=== PATIENT | female | born 2000 ===

== ENCOUNTER 2021-08-10 15:59 | Inpatient (IN) | payer OTHER ==
[2021-08-10] VITALS (24 sets, daily range): BP systolic 88–137; BP diastolic 49–73
[~2021-08-10] VITALS: Ht 157.5 cm; Wt 89.6 kg
[2021-08-10] MEDS ORDERED: OXYTOCIN DRIP 30 UNITS in IV 1 EA IV PRN (16:25)
[2021-08-10] MEDS ORDERED: LIDOCAINE 1% MDV 20ML VIAL INFIL PRN (16:25)
[2021-08-10] MEDS ORDERED: METHYLERGONOVINE MALEATE 0.2 MG/ML VIAL (J2210) IM PRN (16:25)
[2021-08-10] MEDS ORDERED: CARBOPROST TROMETHAMINE 250 MCG/ML AMP IM PRN (16:25)
[2021-08-10] MEDS ORDERED: miSOPROStol 50MCG 1/2 TABLET PO ONE ×2 (16:25→22:45)
[2021-08-10] MEDS ORDERED: TRANEXAMIC ACID INJection 1,000 MG in NS 100 ML IV PRN (16:25)
[2021-08-10] MEDS ORDERED: OXYTOCIN DRIP 30 UNITS in IV 1 EA IV SCH (16:25)
[2021-08-10] MEDS ORDERED: BUSP10TA PO (16:43)
[2021-08-10] MEDS ORDERED: ESCI5SOL3 PO (16:43)
[2021-08-10] MEDS ORDERED: FLINCHW2 PO (16:43)
[2021-08-10] MEDS ORDERED: TUMS500C PO (16:43)
[2021-08-10] MEDS: LR 1,000 ML IV SCH (18:34)
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
[2021-08-10] MEDS ORDERED: HOME MED LIST COMPLETE! XX SCH (18:40)
[2021-08-10 19:01] LABS: HEMOGLOBIN 12.9 g/dl (12.0-15.5); MEAN CORPUSCULAR HEMOGLOBIN 29.9 pg (27.0-33.0); MEAN CORPUSCULAR HGB CONC 32.3 g/dl (32.0-36.5); MEAN CORPUSCULAR VOLUME 92.8 fl (80.0-96.0); PLATELET COUNT, AUTOMATED 280 10^3/uL (150-450); RED BLOOD COUNT 4.31 10^6/uL (4.00-5.40); WHITE BLOOD COUNT 12.8 10^3/uL (4.0-10.0)
[2021-08-10] MEDS ORDERED: ONDANSETRON 4MG/2ML VIAL IV PRN ×2 (19:15→20:30)
[2021-08-10] MEDS ORDERED: FENTANYL 2MCG/ML ROPIVACAINE 0.2% IN 0.9% NACL 100ML IVBAG As Ordered ONE (19:53)
[2021-08-10] MEDS ORDERED: ONDANSETRON 4MG/2ML VIAL IV ONE (20:20)
[2021-08-10] MEDS ORDERED: EPIDURAL/PCA KEYS XX PRN (20:30)
[2021-08-10] MEDS ORDERED: NALOXONE INJ 0.4MG/1ML VIAL (J2310 PER 1MG) IV PRN (20:30)
[2021-08-10] MEDS ORDERED: diphenhydrAMINE 50MG/ML VIAL (J1200) IV PRN (20:30)
[2021-08-10] MEDS ORDERED: EPIDURAL COMMENT XX SCH (20:30)
[2021-08-10] MEDS ORDERED: LACTATED RINGER'S 1000 ML IV PRN (20:30)
[2021-08-10] MEDS ORDERED: REFRIGERATOR IV KEYS XX PRN (20:30)
[2021-08-10] MEDS: ePHEDrine SULFATE 25 MG/5 ML(5MG/ML) SYRINGE IV PRN ×3 (21:12→23:48)
[2021-08-10] MEDS: FENTANYL/ROPIVACAINE/NACL BAG 100 ML EPIDURAL SCH (21:13)
[2021-08-10] MEDS: busPIRone 10 MG TAB PO SCH (22:56)
[2021-08-10] MEDS: ESCITALOPRAM OXALATE 10 MG TAB (LEXAPRO) PO SCH (22:56)
[2021-08-11] VITALS (37 sets, daily range): BP systolic 88–146; BP diastolic 49–74
[2021-08-11] MEDS ORDERED: ePHEDrine INJ 50 MG/ML VIAL IV PRN (01:20)
[2021-08-11] MEDS: ePHEDrine SULFATE 25 MG/5 ML(5MG/ML) SYRINGE IV PRN ×2 (01:39→02:29)
[2021-08-11] MEDS: LR 1,000 ML IV SCH ×3 (02:33→19:59)
[2021-08-11] MEDS: FENTANYL/ROPIVACAINE/NACL BAG 100 ML EPIDURAL SCH (05:48)
--- NOTE | 2021-08-11 07:31 | IPNPDOC ---
Obstetrical Progress Note Date of Service Aug 11, 2021 Subjective to room for assessment. FHT: 150, MOD JAGUAR,+ACCELS, -Decels--cat I tracing SVE: 50/-3,RODRÍGUEZ OUT, FEELS SOFT TOCO: IRREGULAR A/P LATENT LABOR CAT I TRACING. CAN START PIT NOW Objective Vital Signs Date Time Temp Pulse Resp B/P (MAP) Pulse Ox O2 Delivery O2 Flow Rate FiO2 08/11/21 06:57 83 104/59 (74) 08/11/21 06:27 16 08/11/21 05:27 97.6 08/10/21 23:57 98 Room Air SRUTHI RAMON MD Aug 11, 2021 07:30
--- NOTE | 2021-08-11 08:33 | IPNPDOC ---
Obstetrical Progress Note Date of Service Aug 11, 2021 Subjective Pt resting comfortably on left lateral Objective Vital Signs Date Time Temp Pulse Resp B/P (MAP) Pulse Ox O2 Delivery O2 Flow Rate FiO2 08/11/21 07:58 77 106/54 (71) 08/11/21 07:27 98.5 08/11/21 06:27 16 08/10/21 23:57 98 Room Air Assessment Heart Rate (FHR): 140 Variability: Moderate Accelerations: Positive Decelerations: Variable (Occasional with spontaneous recovery to baseline.) Heart Rate Tracing: Category II Tocometer Frequency: irregular Duration: less than 60 seconds Strength: resting tone palp/soft Assessment and Plan Age: 20 : 1 Term: 0 Pre-term: 0 Abortions: 0 Livin EGA at Admission: 41 Weeks & Days 41+1 Status: Reassuring Group B Streptococcus: Negative Anticipate: Vaginal Delivery Additional Comments Pt education for IOL, plan of care, and use of pitocin reviewed with expressed understanding. LR @125 ml/hr, continuous efm x2, initiate pitocin induction and titrate per protocol, monitor for change in or maternal status, encourage frequent maternal repositioning, anticipate vaginal delivery. AKSHAT DAUGHERTY CNM Aug 11, 2021 08:33
--- NOTE | 2021-08-11 12:50 | IPNPDOC ---
Obstetrical Progress Note Date of Service Aug 11, 2021 Subjective Pt states comfort on epidural with occasional pressure. Objective Vital Signs Date Time Temp Pulse Resp B/P (MAP) Pulse Ox O2 Delivery O2 Flow Rate FiO2 08/11/21 09:57 96 122/58 (79) 08/11/21 07:27 98.5 08/11/21 06:27 16 08/10/21 23:57 98 Room Air Assessment Heart Rate (FHR): 150 Variability: Moderate Accelerations: Positive Decelerations: Variable Heart Rate Tracing: Category II Tocometer Contractions: Yes Frequency: regular (q5 min) Duration: greater than 60 seconds Strength: palpated as moderate, resting tone palp/soft Sterile Vaginal Examination Dilation: 6 cm Effacement (%): 90% Station: -2 Cervical Consistency: Soft Cervical Position: Posterior Postion/Presentation: Cephalic presentation Assessment and Plan Age: 20 : 1 Term: 0 Pre-term: 0 Abortions: 0 Livin EGA at Admission: 41 Weeks & Days 41+1 Status: Reassuring Group B Streptococcus: Negative Additional Comments Increased frequency of variable decelerations noted with contraction to 60-80 bpm noted with frequent breaks in monitoring. Pt was rotated from side to side and to hands and knees without improvement in fhr. Cervical exam was completed and patient found to be 6-7 cm dilated with a bulging bag of cruz, OP and asynclitic presentation. An FSE was placed for more accurate fhr tracing. Clear amniotic fluid was noted with placement. Pitocn infusion was discontinued. Dr. Dejon Cool were notified of patient status. Plan discussed for IUPC placement with amnioinfusion. Variable decelerations continued and FSE became displaced. Repeat cervical exam was completed and IUPC placed. At this time the presentation was noted to be OP. The displaced FSE was replaced. Continue LR @125ml/hr, hold pitocin infusion, 150mL/hr normal saline amnioinfusion, monitor output, continuous monitoring with IUPC/FSE, monitor for change in or maternal status, encourage frequent maternal repositioning, consult OB traffic operations engineer as appropriate. AKSHAT DAUGHERTY CNM Aug 11, 2021 12:50
--- NOTE | 2021-08-11 13:31 | IPNPDOC ---
Obstetrical Progress Note Date of Service Aug 11, 2021 Subjective Pt resting with out complaint of pain on epidural anesthesia Objective Vital Signs Date Time Temp Pulse Resp B/P (MAP) Pulse Ox O2 Delivery O2 Flow Rate FiO2 08/11/21 12:27 73 116/64 (81) 08/11/21 10:58 98.0 08/11/21 06:27 16 08/10/21 23:57 98 Room Air Assessment Heart Rate (FHR): 150 Variability: Moderate Accelerations: None Decelerations: Variable Heart Rate Tracing: Category II Tocometer Contractions: Yes Frequency: irregular Duration: greater than 60 seconds Strength: resting tone palp/soft Assessment and Plan Age: 20 : 1 Term: 0 Pre-term: 0 Abortions: 0 Livin Weeks & Days 41+1 Status: Non-reassuring Group B Streptococcus: Negative Anticipate: Section Additional Comments Pt advised of intolerance of contractions, with expressed understanding. Dr. Ashford was called and care transferred for delivery. AKSHAT DAUGHERTY CNM Aug 11, 2021 13:31
[2021-08-11] MEDS ORDERED: AZITHROMYCIN INJ 500 MG, VIAL MATE ADAPTER 1 EACH in NS 250 ML IV ONE (13:35)
[2021-08-11] MEDS ORDERED: ACETAMINOPHEN 650 MG SUPP PR SCH (13:35)
[2021-08-11] MEDS ORDERED: METHYLERGONOVINE MALEATE 0.2 MG/ML VIAL (J2210) IM PRN (13:35)
[2021-08-11] MEDS ORDERED: OXYTOCIN INJ 10 UNITS/ML VIAL (J2590) IV PRN (13:35)
[2021-08-11] MEDS ORDERED: ceFAZolin SOD 2 GM in IV 1 EA IV ONE (13:35)
[2021-08-11] MEDS ORDERED: BICITRA 30ML SOLN UDC PO ONE (13:35)
[2021-08-11] MEDS ORDERED: OXYTOCIN DRIP 30 UNITS in IV 1 EA IV PRN ×4 (13:35)
[2021-08-11] MEDS ORDERED: ePHEDrine SULFATE 25 MG/5 ML(5MG/ML) SYRINGE As Ordered ONE (13:47)
[2021-08-11] MEDS ORDERED: dexameTHASONE 4 MG/ML 1ML VIAL (J1100 PER 1MG) As Ordered ONE (13:47)
[2021-08-11] MEDS ORDERED: LIDOCAINE 2% W/EPINEPHRINE 20ML VIAL **PRES FREE As Ordered ONE (13:47)
[2021-08-11] MEDS ORDERED: PHENYLephrine 500MCG 5ML (100MCG/ML) SYRINGE As Ordered ONE (13:47)
[2021-08-11] MEDS ORDERED: MORPHINE PRES-FREE INJ 10 MG/10 ML VIAL (J2274) As Ordered ONE (13:47)
[2021-08-11] MEDS ORDERED: ONDANSETRON 4MG/2ML VIAL As Ordered ONE (13:47)
[2021-08-11] MEDS ORDERED: KETOROLAC 60MG 2ML VIAL As Ordered ONE (13:47)
[2021-08-11] MEDS ORDERED: OXYTOCIN 30 UNITS IN 0.9% NaCl 500ML IV BAG (J2590) As Ordered ONE (13:48)
[2021-08-11] MEDS ORDERED: METOCLOPRAMIDE INJ 10MG/2ML VIAL (J2765 PER 1) IV PRN (13:50)
[2021-08-11] MEDS ORDERED: NALBUPHINE HCL 10 MG/ML AMP (J2300) IV PRN ×2 (13:50→15:50)
[2021-08-11] MEDS ORDERED: ONDANSETRON 4MG/2ML VIAL IV PRN ×2 (13:50→15:50)
[2021-08-11] MEDS ORDERED: NALOXONE INJ 0.4MG/1ML VIAL (J2310 PER 1MG) IV PRN ×2 (13:50)
[2021-08-11] MEDS ORDERED: diphenhydrAMINE 50MG/ML VIAL (J1200) IV PRN (13:50)
[2021-08-11] MEDS ORDERED: OXYTOCIN INJ 10 UNITS/ML VIAL (J2590) As Ordered ONE (13:57)
[2021-08-11 14:45] LABS: CORD GAS ABE A -1.8; CORD GAS HCO3 A 26.7 MEQ/L; CORD GAS O2 SAT A 22.4 %; CORD GAS PCO2 A 59.5 mmHg; CORD GAS PH A 7.27 UNITS; CORD GAS PO2 A 13.7 mmHg; CORD GAS SBC A 20.8 MEQ/L; CORD GAS TCO2 A 28.5 MEQ/L
[2021-08-11 14:46] LABS: CORD GAS ABE V -1.4; CORD GAS HCO3 V 24.9 MEQ/L; CORD GAS O2 SAT V 61.8 %; CORD GAS PCO2 V 46.9 mmHg; CORD GAS PH V 7.343 UNITS; CORD GAS PO2 V 25.4 mmHg; CORD GAS SBC V 22.2 MEQ/L; CORD GAS TCO2 V 26.3 MEQ/L
[2021-08-11] MEDS ORDERED: SIMETHICONE 80MG CHEW TAB PO PRN (15:20)
[2021-08-11] MEDS ORDERED: ANUSOL HC CREAM 30GM TOP PRN (15:20)
[2021-08-11] MEDS ORDERED: RHOGAM 300 MCG (1500 IU) INJ (J2790) IM SCH (15:20)
[2021-08-11] MEDS ORDERED: ACETAMINOPHEN TAB 650MG DOSE (2X325MG) PO PRN (15:20)
[2021-08-11] MEDS ORDERED: MEASLES,MUMPS,RUBELLA VACCINE INJ (MMR-II) (90707) SC SCH (15:20)
[2021-08-11] MEDS ORDERED: DOCUSATE SODIUM 100MG CAPSULE PO PRN (15:20)
[2021-08-11] MEDS ORDERED: OXYTOCIN DRIP 30 UNITS in IV 1 EA IV SCH (15:20)
[2021-08-11] MEDS ORDERED: PERCOCET 5MG/325MG TAB PO PRN (15:20)
[2021-08-11] MEDS ORDERED: ACETAMINOPHEN 650 MG SUPP PR PRN (15:20)
[2021-08-11] MEDS ORDERED: MOM 30ML SUSPENSION UDC PO PRN (15:20)
[2021-08-11] MEDS ORDERED: ACETAMINOPHEN 500 MG TAB PO PRN (15:20)
[2021-08-11] MEDS ORDERED: HYDROMORPHONE HCL 0.5 MG/ 0.5 ML SYRINGE (J1170 PER 1) IV PRN (15:50)
[2021-08-11] MEDS ORDERED: oxyCODONE 5MG TAB PO PRN (15:50)
[2021-08-11] MEDS ORDERED: MEPERIDINE INJ 25 MG/ML VIAL (J2175) IV PRN (15:50)
[2021-08-11] MEDS ORDERED: OXYTOCIN DRIP 30 UNITS in IV 1 EA IV ONE (15:55)
[2021-08-11] MEDS ORDERED: fentaNYL 100 MCG/2 ML INJECTION (J3010) As Ordered ONE (15:58)
[2021-08-11] MEDS: fentaNYL 100 MCG/2 ML INJECTION (J3010) IV PRN ×2 (16:00→16:49)
--- NOTE | 2021-08-11 19:58 | IPNPDOC ---
Text Note Date of Service The patient was seen on 08/11/21. NOTE 08/11/2021 THIS PATIENT IS A G1 PO ADMITTED FOR IOL AT LATE TERM . WITH APPROPRIATE MEASURES PATIENT DILATED TO 6 CM AND HAD NRFHT DESPITE RESUSCITATION PROCEDURES DESPITE AMNIO INFUSION and fse. therefore discussion re primary cs with risk of hemorrhage infection perforation reoperation remote blood transfusion remote hysterectomy for life threatening bleeding and possible infant admission to nicu for observation expressed understanding signed consent all questions answered neonatology advised 20 minute discussion VS,Fishbone, I+O VS, Fishbone, I+O Vital Signs Date Time Temp Pulse Resp B/P (MAP) Pulse Ox O2 Delivery O2 Flow Rate FiO2 08/11/21 19:02 98.1 86 18 116/63 (80) 97 Room Air I&O- Last 24 Hours up to 6 AM 08/11/21 06:00 Intake Total 2588 ml Output Total 2200 ml Balance 388 ml Vaibhav Ashford MD Aug 11, 2021 19:57
[2021-08-11] MEDS: busPIRone 10 MG TAB PO SCH (21:29)
[2021-08-11] MEDS: ESCITALOPRAM OXALATE 10 MG TAB (LEXAPRO) PO SCH (21:29)
[2021-08-11] MEDS: KETOROLAC 30 MG/ML 1ML VIAL IV SCH (21:30)
[2021-08-12] VITALS (7 sets, daily range): BP systolic 100–119; BP diastolic 51–59
[2021-08-12] MEDS: KETOROLAC 30 MG/ML 1ML VIAL IV SCH ×2 (03:29→08:30)
[2021-08-12] MEDS: LR 1,000 ML IV SCH ×2 (07:20→15:20)
--- NOTE | 2021-08-12 08:53 | RO ---
OPERATIVE NOTE DATE OF OPERATION: 08/11/2021 PREOPERATIVE DIAGNOSIS: Non-reassuring heart tones remote from delivery. POSTOPERATIVE DIAGNOSIS: Non-reassuring heart tones remote from delivery. OPERATION PROPOSED: Primary section. OPERATION PERFORMED: Primary section. ANESTHESIA: Epidural plus local anesthetic for intraperitoneal procedures. ESTIMATED BLOOD LOSS: 300 mL. SURGEON: Dr. Vaibhav Ashford PROCEDURE IN DETAIL: After adequate time-out, prepped and draped in the supine position, Guzman catheter in the bladder draining clear urine, sequentials in place, appropriate antibiotics preoperatively, acetaminophen suppository 1300 mg per rectum, a Pfannenstiel incision was made two finger breadths at the symphysis pubis passing through abdominal layers, securing hemostasis. Opening the peritoneal cavity, bladder reflected well down. A low transverse incision was made into the uterus. ARM draining clear liquor, delivered a livebirth male requiring one blade of the forceps to elevate the head out of the pelvis. Male weighing 2750 grams, 6 pounds 1 ounce, Apgars 9 and 9 at one and five minutes respectively. Arterial pH 7.27, base excess -1.8, venous pH 7.34, base excess -1.4. The placenta was manually removed, three vessels in the cord, membranes and tissues intact. The uterus contracted well down under Pitocin. The uterus was swept clean and then the lower segment was oversewn in the usual fashion in two layers, imbricating the second layer. Reperitonealization was performed. Instrument and pad count correct. The Mobius, which had previously been placed, was removed. The ovaries and tubes appeared to be normal. The uterus remained well contracted. The abdomen was then closed with a running stitch for the peritoneum, the same for the fascia, interrupted for subcutaneous, subcuticular stitch and Marcaine 0.25% 20 mL in the skin with a Mepore dressing. The patient was then sent to the recovery room in good condition. Stephon Briseno OB
[2021-08-12] MEDS ORDERED: INFLUENZA QUADRIVALENT PF VACCINE 0.5ML SYRINGE IM ONE (09:00)
[2021-08-12 09:19] LABS: HEMATOCRIT 27.5 % (36.0-47.0); MEAN CORPUSCULAR HEMOGLOBIN 30.8 pg (27.0-33.0); MEAN CORPUSCULAR HGB CONC 32.7 g/dl (32.0-36.5); MEAN CORPUSCULAR VOLUME 94.2 fl (80.0-96.0); PLATELET COUNT, AUTOMATED 194 10^3/uL (150-450); RED BLOOD COUNT 2.92 10^6/uL (4.00-5.40); WHITE BLOOD COUNT 11.8 10^3/uL (4.0-10.0)
[2021-08-12] MEDS: PRENATAL VITAMINS CHEWABLE TABLET PO SCH (09:26)
--- NOTE | 2021-08-12 13:09 | IPN ---
PROGRESS NOTE DATE: 08/11/2021 This patient requested circumcision of her male . After discussing risks and benefits of circumcision, the medical and nonmedical indications, the penile block and aftercare, expressed understanding of penile block, aftercare and bleeding, signed the consent form. All questions were answered, 20 minute discussion. We await clearance by the seo specialist.
--- NOTE | 2021-08-12 14:36 | IPN ---
PROGRESS NOTE DATE: 08/12/2021 and postoperative day #1. SUBJECTIVE: This lady is a 20-year-old 1 now para 1, who had been admitted for induction of labor at late term, had a primary section for non-reassuring heart tones and remote from delivery. Male infant, 6 pounds, 1 ounce, 2750 grams, Apgars of 9 and 9 at 1 and 5 minutes respectively. Arterial pH 7.27, base excess -1.8, venous pH 7.34, base excess -1.4. On her first day we discussed phlebitis, cystitis, mastitis, endometritis, cellulitis, diet, exercise, pain management, perineal, breast and wound care. OBJECTIVE: On examination she is normocephalic, atraumatic. Neck: Full range of motion Pupils equal and reactive to light. Distal pulses are symmetric. No evidence of DVT, PE or superficial phlebitis. Chest is clear bilaterally to bases. No wheezes or rhonchi. Abdomen is soft. Uterus is 2 below. Lochia is moderate. Four quadrant bowel sounds are noted. The incision is clean and dry. Patient's Guzman catheter is out, is passing gas and voiding. Breast-feeding is going well. Her blood pressure today is 100/59, respirations are 17, pulse 86, temperature is 97.9. Her admitting hemoglobin is 12.9, hematocrit 40.0, platelets are 280,000. Day #1 hemoglobin is still pending. Plan of care is to parts picker medications at [place], a two week incision check, a six week check. All questions were answered, a 20 minute discussion. Anticipation of discharge tomorrow morning. cc: [place] [facility]
[2021-08-12] MEDS: IBUPROFEN 600MG TAB PO PRN (19:27)
[2021-08-12] MEDS: ESCITALOPRAM OXALATE 10 MG TAB (LEXAPRO) PO SCH (21:14)
[2021-08-12] MEDS: busPIRone 10 MG TAB PO SCH (21:14)
[2021-08-12] MEDS: PERCOCET 5MG/325MG TAB PO PRN (21:23)
[2021-08-13] MEDS: IBUPROFEN 600MG TAB PO PRN (02:03)
[2021-08-13 02:11] VITALS: BP 117/57
[2021-08-13] MEDS ORDERED: OXYC-517 PO (05:06)
[2021-08-13] MEDS ORDERED: IBUP-1022 PO (05:06)
[2021-08-13] MEDS ORDERED: COLA100C5 PO (05:06)
[2021-08-13] MEDS ORDERED: ACET1TAB55 PO (05:06)
[2021-08-13 06:16] VITALS: BP 115/65
[2021-08-13] MEDS: PERCOCET 5MG/325MG TAB PO PRN ×2 (08:36→13:59)
[2021-08-13] MEDS: PRENATAL VITAMINS CHEWABLE TABLET PO SCH (08:37)
[2021-08-13] MEDS ORDERED: INFLUENZA QUADRIVALENT PF VACCINE 0.5ML SYRINGE IM ONE (09:40)
== END 2021-08-13 14:30 | disposition home or self-care (01) | DRG 773 ==
LOC: M LDI 15:59 → M OBS 08-11 16:35
PROVIDERS: ADMIT Obstetrics & Gynecology; ATTEND Obstetrics & Gynecology
PROC: 3E0P7GC Introduction of Other Therapeutic Substance into Female Reproductive, Via Natural or Artificial Opening (ICD-10-PCS; 2021-08-10)
PROC: 10D00Z1 Extraction of Products of Conception, Low, Open Approach (ICD-10-PCS; principal; 2021-08-11 12:21)
DX: O48.0 Post-term pregnancy (principal); Z3A.41 41 weeks gestation of pregnancy; Z37.0 Single live birth; O99.343 Other mental disorders complicating pregnancy, third trimester; F32.A Depression, unspecified; F41.9 Anxiety disorder, unspecified; O76 Abnormality in fetal heart rate and rhythm complicating labor and delivery; O64.8XX0 Obstructed labor due to other malposition and malpresentation, not applicable or unspecified